=== PATIENT | female | born 1980 | race Caucasian/White ===

== ENCOUNTER 2018-07-03 07:57 | Day surgery (SDC) | payer OTHER ==
[2018-07-03 08:30] VITALS: BMI 32.8
[2018-07-03] MEDS ORDERED: MIDAZOLAM HCL 2 MG/2 ML SINGLE DOSE VIAL ONE (13:10)
[2018-07-03] MEDS ORDERED: LIDOCAINE HCL 1%, 10 MG/ML (20ML VIAL) ONE (13:19)
[2018-07-03] MEDS ORDERED: ceFAZolin SODIUM 1 GM VIAL ONE (13:22)
[2018-07-03 14:10] VITALS: PULSE 84
[2018-07-03 14:42] VITALS: BP 121/81; TEMP 98.1
--- NOTE | 2018-07-04 07:36 | OP ---
DATE OF OPERATION: 07/03/2018 SURGEON: Fauzia Villafana MD MANUFACTURING ENGINEER SUPERVISOR: CRYSTAL Denney PREOPERATIVE DIAGNOSIS: Right wrist carpal tunnel syndrome. POSTOPERATIVE DIAGNOSIS: Right wrist carpal tunnel syndrome. PROCEDURE: Right carpal tunnel release. CPT code 17561. FINDINGS: Thickened transverse carpal ligament impinging upon median nerve. PROCEDURE: Under sterile conditions, right the upper extremity was prepped and draped in a sterile fashion. Incision was made along the longitudinal portion of the carpal tunnel. A longitudinal incision was made along the proximal portion of the palm, following the palm crease. This was taken down to the transcarpal ligament, which was released initially with scalpel and then extended proximally and distally using blunt tenotomy scissors. The median nerve was identified and completely released from impingement by the transcarpal ligament. The wound was then irrigated with copious amounts of irrigation. Skin was closed with 5-0 nylon in single interrupted sutures. FAUZIA VILLAFANA M.D. [id number]
== END 2018-07-03 14:50 | disposition home or self-care (01) ==
LOC: FASU 07:57
PROVIDERS: ATTEND Orthopaedic Surgery
PROC: 01N50ZZ Release Median Nerve, Open Approach (ICD-10-PCS; principal; 2018-07-03 13:38)
DX: G56.01 Carpal tunnel syndrome, right upper limb (principal)
CPT/HCPCS: 84703

== ENCOUNTER 2019-04-16 09:53 | Day surgery (SDC) | payer OTHER ==
[2019-04-12 15:08] VITALS: BMI 30.2
[2019-04-16] MEDS ORDERED: oxyCODONE HCL 5 MG TABLET PO PRN ×2 (10:29)
[2019-04-16] MEDS ORDERED: ONDANSETRON 4 MG/2 ML VIAL IVPUSH PRN (10:29)
[2019-04-16] MEDS ORDERED: LACTATED RINGERS SOLUTION 1,000 ML IV SCH (10:30)
[2019-04-16] MEDS ORDERED: ACETAMINOPHEN INJECTION 100 ML IVPB ONE (10:51)
[2019-04-16] MEDS ORDERED: LIDOCAINE HCL 1% PRESERVATIVE FREE - 30ML VIAL ONE (11:03)
[2019-04-16] MEDS ORDERED: BUPIVACAINE HCL/PF 0.5% (5MG/ML) 10 ML VIAL ONE (11:04)
[2019-04-16] MEDS ORDERED: MIDAZOLAM HCL 2 MG/2 ML SINGLE DOSE VIAL ONE (11:18)
[2019-04-16] MEDS ORDERED: ceFAZolin SODIUM 1 GM VIAL ONE (11:23)
[2019-04-16] MEDS ORDERED: KETOROLAC TROMETHAMINE 30 MG/1 ML VIAL ONE (11:23)
[2019-04-16] MEDS ORDERED: ONDANSETRON 4 MG/2 ML VIAL ONE ×2 (11:23→11:57)
[2019-04-16] MEDS ORDERED: DEXAMETHASONE SOD PHOSPHATE 4 MG/1 ML VIAL ONE (11:23)
[2019-04-16] MEDS ORDERED: LIDOCAINE HCL/PF 2% SDV 5ML VIAL ONE (11:26)
[2019-04-16] MEDS ORDERED: PROMETHAZINE HCL 25 MG/1 ML VIAL ONE (11:57)
[2019-04-16] MEDS ORDERED: PROMETHAZINE HCL 25 MG/1 ML VIAL IVPUSH PRN (11:58)
[2019-04-16 15:03] VITALS: BP 108/65; PULSE 76; TEMP 97.7
--- NOTE | 2019-04-19 09:31 | OP ---
DATE OF OPERATION: 04/16/2019 LOCATION: [facility]. SURGEON: Fauzia Villafana MD MEAT STRINGER: CRYSTAL Denney PREOPERATIVE DIAGNOSIS: Left carpal tunnel syndrome. POSTOPERATIVE DIAGNOSIS: Left carpal tunnel syndrome. PROCEDURE: Left carpal tunnel release. FINDINGS: Thickened transverse carpal ligament pinched by median nerve. DESCRIPTION OF PROCEDURE: Under sterile conditions, the upper extremity was prepped and draped in a sterile fashion. Incision was made along the longitudinal portion of the carpal tunnel. A longitudinal incision was made along the proximal portion of the palm, following the palm crease. This was taken down to the transcarpal ligament, which was released initially with scalpel and then extended proximally and distally using blunt tenotomy scissors. The median nerve was identified and completely released from impingement by the transcarpal ligament. The wound was then irrigated with copious amounts of irrigation. Skin was closed with 5-0 nylon in single interrupted sutures. The PA listed above was present and assisted at surgery. Their presence was absolutely medically necessary for the completion of the procedure. They helped hold the arthroscopy, pass instruments (and implants when indicated) and the procedure could not have been completed without their assistance. FAUZIA VILLAFANA M.D. /[id number]
== END 2019-04-16 15:00 | disposition home or self-care (01) ==
LOC: FASU 09:53
PROVIDERS: ATTEND Orthopaedic Surgery
PROC: 01N50ZZ Release Median Nerve, Open Approach (ICD-10-PCS; principal; 2019-04-16 11:35)
DX: G56.02 Carpal tunnel syndrome, left upper limb (principal)
CPT/HCPCS: 84703; 94760; J0131